=== PATIENT | male | born 1930 | race Two or more races ===

== ENCOUNTER 2018-08-08 23:45 | Emergency (ER) | payer SELFPAY ==
[~2018-08-08] VITALS: Ht 167.6 cm; Wt 77.1 kg
--- NOTE | 2018-08-08 23:45 | NUR ---
[id number] C/C APPROXIMATELY 3 INCH LAC FROM FALLING OUT OF WHEELCHAIR WHILE GOING DOWN STAIRS. PT AA/OX4. UNWITNESSED. SMELLS OF ETOH. NO S/S SOB. NO N/V. SKIN PINK, WARM, DRY. NAD. VSS. WILL CONTINUE TO MONITOR.
[2018-08-09] MEDS ORDERED: LIDOCAINE 1%-EPI 1:100,000 20 ML VIAL ONE (01:49)
[2018-08-09] MEDS ORDERED: TDAP [DIPH/PERTUSSIS/TET] 0.5 ML VIAL IM ONE ×2 (02:00→02:03)
--- NOTE | 2018-08-09 02:01 | NUR ---
Patient is resting comfortably in bed with eyes closed. Easily aroused. VSS
--- NOTE | 2018-08-09 02:15 | NUR ---
PA AT BEDSIDE FOR SUTURING AND WOUND CARE
[2018-08-09 06:02] VITALS: BP 119/67
== END 2018-08-09 06:06 | disposition home or self-care (01) ==
LOC: ER 23:47
DX: S01.81XA Laceration without foreign body of other part of head, initial encounter (principal); S01.01XA Laceration without foreign body of scalp, initial encounter; F10.10 Alcohol abuse, uncomplicated; Y90.9 Presence of alcohol in blood, level not specified; W10.8XXA Fall (on) (from) other stairs and steps, initial encounter; Y93.89 Activity, other specified; Y92.89 Other specified places as the place of occurrence of the external cause; Y99.8 Other external cause status
CPT/HCPCS: 12002; 12013; 70450; 70486; 72125; 90471; 90715; 99284; A4606; A6402; J3490; Z7610